=== PATIENT | female | born 1955 | race African-American/Black ===

== ENCOUNTER 2018-01-29 08:06 | Day surgery (SDC) | payer BC ==
[2018-01-29 08:50] VITALS: BMI 36.6
[2018-01-29] MEDS ORDERED: LIDOCAINE HCL 2% (20ML MULTI-DOSE VIAL) NR ONE (09:00)
[2018-01-29] MEDS ORDERED: PROPOFOL 20 ML ONE ×2 (09:00)
[2018-01-29 10:05] VITALS: TEMP 97.7
[2018-01-29 11:12] VITALS: BP 130/78; PULSE 67
== END 2018-01-29 11:12 | disposition home or self-care (01) ==
LOC: JASU-ENDO 08:06
PROVIDERS: ATTEND Internal Medicine Gastroenterology
PROC: 0DJD8ZZ Inspection of Lower Intestinal Tract, Via Natural or Artificial Opening Endoscopic (ICD-10-PCS; principal; 2018-01-29 09:00)
DX: Z12.11 Encounter for screening for malignant neoplasm of colon (principal); Z83.71 Family history of colonic polyps; K57.30 Diverticulosis of large intestine without perforation or abscess without bleeding; K64.8 Other hemorrhoids

== ENCOUNTER 2022-06-01 13:35 | Emergency (ER) | payer OTHER, BC ==
[2022-06-01 14:02] VITALS: BP 151/76; PULSE 93; RESP 16; TEMP 98.3; BMI 32.9
== END 2022-06-01 14:59 | disposition home or self-care (01) ==
LOC: FER 13:35
DX: S99.912A Unspecified injury of left ankle, initial encounter (principal)
CPT/HCPCS: 73610-TC-LT-FY; 73630-TC-LT; 99284-25

== ENCOUNTER 2022-08-30 05:10 | Day surgery (SDC) | payer OTHER, BC ==
[2022-08-30 08:19] VITALS: BMI 35.3
[2022-08-30 13:18] VITALS: BP 130/63; PULSE 71; RESP 17; TEMP 98
== END 2022-08-30 11:00 | disposition home or self-care (01) ==
LOC: JASU-ENDO 05:10
PROVIDERS: ATTEND Internal Medicine Gastroenterology
PROC: 0DB68ZX Excision of Stomach, Via Natural or Artificial Opening Endoscopic, Diagnostic (ICD-10-PCS; principal; 2022-08-30 08:45)
DX: K29.50 Unspecified chronic gastritis without bleeding (principal)
CPT/HCPCS: 88305-TC; 88342-TC

== ENCOUNTER 2022-09-06 04:05 | Day surgery (SDC) | payer OTHER, BC ==
[2022-09-04 11:57] VITALS: BMI 35.3
[2022-09-06 11:26] VITALS: BP 110/50; PULSE 60; RESP 18; TEMP 98
== END 2022-09-06 11:00 | disposition home or self-care (01) ==
LOC: JASU-ENDO 04:05 → MERGE 09:30 → JASU-ENDO 11:00
PROVIDERS: ATTEND Internal Medicine Gastroenterology
PROC: 0DBM8ZX Excision of Descending Colon, Via Natural or Artificial Opening Endoscopic, Diagnostic (ICD-10-PCS; principal; 2022-09-06 08:30)
DX: Z12.11 Encounter for screening for malignant neoplasm of colon (principal); K63.5 Polyp of colon; K64.8 Other hemorrhoids; K57.30 Diverticulosis of large intestine without perforation or abscess without bleeding
CPT/HCPCS: 88305-TC